=== PATIENT | male | born 1975 | race African-American/Black ===

== ENCOUNTER 2024-08-24 10:46 | Day surgery (SDC) | payer OTHER, SELFPAY ==
[2024-08-22 11:56] LABS: Anion Gap 5.8 mEq/L (5.0-15.0); Potassium 3.8 mEq/L (3.5-5.1)
--- NOTE | 2024-08-23 14:51 | EKG ---
Test Date: 2024-08-22 Test Time: 11:12:17 Auto Transmission Mechanic: KAREN MEASUREMENT RESULTS: Intervals: Rate: 68 MO: 174 QRSD: 68 QT: 380 QTc: 404 Williams: P: 70 MO: 174 QRS: 30 T: 32 INTERPRETIVE STATEMENTS: Normal sinus rhythm Possible Left atrial enlargement Septal infarct, age undetermined Abnormal ECG No previous ECG available for comparison Electronically Signed On 08-23-24 14:46:39 CDT by Pito Galvez
[2024-08-24] MEDS: Ringers Lactate 1,000 ML IV ONE (11:10)
[2024-08-24] MEDS ORDERED: LIDOCAINE 1% MPF 2 ML AMPULE ONE (12:36)
[2024-08-24] MEDS ORDERED: propofoL 200 MG/20 ML VIAL IV ONE ×2 (12:36→13:04)
[2024-08-24 14:27] VITALS: O2SAT 100
[2024-08-24 14:28] VITALS: BP 123/82; TEMP 97.3
== END 2024-08-24 14:20 | disposition home or self-care (01) ==
LOC: OR 10:46
PROVIDERS: ATTEND Surgery
PROC: 0DBN8ZX Excision of Sigmoid Colon, Via Natural or Artificial Opening Endoscopic, Diagnostic (ICD-10-PCS; principal; 2024-08-24 12:45)
DX: Z12.11 Encounter for screening for malignant neoplasm of colon (principal); N42.9 Disorder of prostate, unspecified; K52.9 Noninfective gastroenteritis and colitis, unspecified; K64.8 Other hemorrhoids
CPT/HCPCS: 93005; 80048; 36415; 88304; 45380; J2704 ×2; J7120